=== PATIENT | female | born 1990 | race Caucasian/White ===

== ENCOUNTER 2018-10-15 11:23 | Emergency (ER) | payer OTHER ==
[~2018-10-15] VITALS: Ht 152.4 cm; Wt 60.3 kg
== END 2018-10-15 15:51 | disposition home or self-care (01) ==
LOC: ER 11:23
DX: O26.892 Other specified pregnancy related conditions, second trimester (principal); R10.2 Pelvic and perineal pain; Z34.82 Encounter for supervision of other normal pregnancy, second trimester

== ENCOUNTER 2018-10-31 01:30 | Emergency (ER) | payer OTHER ==
[~2018-10-31] VITALS: Ht 152.4 cm; Wt 58.5 kg
[2018-10-31] MEDS ORDERED: PRENATAL + DHA1 EAC1 (01:44)
[2018-10-31] MEDS ORDERED: PROGESTERO50 MG/1 M1 (01:44)
[2018-10-31] MEDS ORDERED: FLONASE ALLERG9.9 ML NASAL (04:00)
== END 2018-10-31 04:10 | disposition home or self-care (01) ==
LOC: ER 01:30
DX: R04.0 Epistaxis (principal); R09.81 Nasal congestion

== ENCOUNTER 2019-03-09 15:01 | Outpatient (CLI) | payer OTHER ==
[~2019-03-09 15:01] MED LIST: FLONASE ALLERG9.9 ML NASAL; PRENATAL + DHA1 EAC1; PROGESTERO50 MG/1 M1
[2019-03-09] MEDS ORDERED: VALTREX1000 MG PO (16:21)
[2019-03-09] MEDS ORDERED: PRENATAL TABLE1 EAC1 PO (16:21)
[2019-03-10] MEDS ORDERED: DUI500 PO ×2 (11:46→12:01)
[2019-03-10] MEDS ORDERED: NYSTATIN15 G2 TOP ×2 (11:50→12:01)
== END 2019-03-10 14:11 | disposition home or self-care (01) ==
LOC: OBS/DEL 15:01
DX: O47.03 False labor before 37 completed weeks of gestation, third trimester (principal); O99.113 Other diseases of the blood and blood-forming organs and certain disorders involving the immune mechanism complicating pregnancy, third trimester; D69.49 Other primary thrombocytopenia; O98.813 Other maternal infectious and parasitic diseases complicating pregnancy, third trimester; B37.49 Other urogenital candidiasis

== ENCOUNTER 2019-03-26 07:31 | Inpatient (IN) | payer OTHER ==
[~2019-03-26] VITALS: Ht 152.4 cm; Wt 149.0 kg
[~2019-03-26 07:31] MED LIST changes: +DUI500 PO; +NYSTATIN15 G2 TOP; +PRENATAL TABLE1 EAC1 PO; +VALTREX1000 MG PO
[2019-03-26] MEDS ORDERED: PRENATAL 19 TA1 EAC1 PO (08:14)
== END 2019-03-29 10:50 | disposition home or self-care (01) | DRG 785 ==
LOC: OB/GYN 07:31 → O/R 09:08 → OB/GYN 13:14
PROVIDERS: ADMIT Specialist
PROC: 0UL70ZZ Occlusion of Bilateral Fallopian Tubes, Open Approach (ICD-10-PCS; 2019-03-26)
PROC: 4A1HXCZ Monitoring of Products of Conception, Cardiac Rate, External Approach (ICD-10-PCS; 2019-03-26)
PROC: 10D00Z1 Extraction of Products of Conception, Low, Open Approach (ICD-10-PCS; principal; 2019-03-26 11:00)
DX: O82 Encounter for cesarean delivery without indication (principal); Z3A.38 38 weeks gestation of pregnancy; Z37.0 Single live birth; Z30.2 Encounter for sterilization; Z22.330 Carrier of Group B streptococcus

== ENCOUNTER 2024-03-13 07:12 | Emergency (ER) | payer OTHER ==
[~2024-03-13] VITALS: Ht 152.4 cm; Wt 59.0 kg
[~2024-03-13 07:12] MED LIST changes: +PRENATAL 19 TA1 EAC1 PO
[2024-03-13] MEDS ORDERED: ACETAMINOPHEN 500 MG GEL..CAP PO ONE (09:00)
[2024-03-13 09:14] LABS: HEMATOCRIT 32.5 % (36.0-45.00); HEMOGLOBIN 10.6 g/dL (12.0-15.00); MEAN CELL VOLUME 73.4 fL (80.00-100.00); MEAN CORPUSCULAR HEMOGLOBIN 23.9 pg (27.00-32.0); MEAN CORPUSCULAR HGB CONC 32.6 g/dl (32.0-36.0); PLATELET COUNT 208 K/uL (150-450); RED BLOOD COUNT 4.42 M/uL (4.00-6.00); RED CELL DISTRIBUTION WIDTH 17.2 % (11.5-14.5)
[2024-03-13 09:46] LABS: CALCIUM 8.6 mg/dL (8.5-10.1); CREATININE SERUM 0.72 mg/dL (0.55-1.02); GFR 92.72; POTASSIUM 3.84 mEq/L (3.5-5.1)
[2024-03-13] MEDS ORDERED: BENZONATATE100 MG PO (10:06)
[2024-03-13] MEDS ORDERED: OSEL75CA PO (10:06)
[2024-03-13 10:12] VITALS: BP 100/60; O2SAT 100
== END 2024-03-13 10:13 | disposition home or self-care (01) ==
LOC: ER 07:14
PROVIDERS: General Practice
DX: J10.1 Influenza due to other identified influenza virus with other respiratory manifestations (principal); Z88.8 Allergy status to other drugs, medicaments and biological substances; Z20.822 Contact with and (suspected) exposure to COVID-19

== ENCOUNTER 2025-01-29 11:28 | Emergency (ER) | payer OTHER ==
[~2025-01-29] VITALS: Ht 152.4 cm; Wt 59.0 kg
[~2025-01-29 11:28] MED LIST changes: +BENZONATATE100 MG PO; +OSEL75CA PO
[2025-01-29 11:45] VITALS: BP 116/77; O2SAT 100
[2025-01-29] MEDS ORDERED: TETANUS & DIPHTHERIA TOX,ADULT 0.5 ML VIAL IM ONE (12:30)
[2025-01-29] MEDS ORDERED: CEFTRIAXONE SODIUM 1,000 MG VIAL IM ONE (12:30)
[2025-01-29] MEDS ORDERED: CEFUROXIME500 MG PO (13:22)
[2025-01-29] MEDS ORDERED: PEPCID AC20 MG PO (13:22)
== END 2025-01-29 13:27 | disposition home or self-care (01) ==
LOC: ER 11:28
DX: S91.021A Laceration with foreign body, right ankle, initial encounter (principal); W45.8XXA Other foreign body or object entering through skin, initial encounter; Y93.89 Activity, other specified; Y92.89 Other specified places as the place of occurrence of the external cause; Z88.8 Allergy status to other drugs, medicaments and biological substances
CPT/HCPCS: 90471; 90714; J1670